=== PATIENT | female | born 1980 | race Caucasian/White ===

== ENCOUNTER → 2016-09-07 | Outpatient (CLI) | payer OTHER ==
[2016-09-07 16:59] LABS: HEMATOCRIT 36.4 % (37-47); MEAN CELL VOLUME 91.7 fL (80-100); MEAN CORPUSCULAR HEMOGLOBIN 29.7 pg (25-34); MEAN CORPUSCULAR HGB CONC 32.4 g/dl (32-36); MEAN PLATELET VOLUME 9.8 fL (7.4-10.4); PLATELET COUNT 323 K/uL (130-400); RED BLOOD COUNT 3.97 M/uL (4.2-5.4); WHITE BLOOD COUNT 6.16 K/uL (4.8-10.8)
[2016-09-07 17:36] LABS: LYME DISEASE AB IGM NEG (NEG)
[2016-09-07 17:39] LABS: LYME DISEASE AB IGG NEG (NEG)
[2016-09-07 19:35] LABS: BLOOD UREA NITROGEN 11 mg/dl (7-18); BUN/CREATININE RATIO 11.9 (10-20); CALCIUM 8.8 mg/dl (8.5-10.1); CARBON DIOXIDE 26 mmol/L (21-32); CHLORIDE 107 mmol/L (98-107); CREATININE 0.94 mg/dl (0.60-1.20); GLUCOSE 82 mg/dl (70-99); POTASSIUM 3.6 mmol/L (3.5-5.1); SODIUM 138 mmol/L (136-145)
[2016-09-07 19:45] LABS: THYROID STIMULATING HORMONE 0.527 uIu/ml (0.300-4.500)
== END | disposition home or self-care (01) ==
LOC: C.LABPBG 14:51
PROVIDERS: ATTEND Family Medicine
DX: I10 Essential (primary) hypertension (principal)

== ENCOUNTER 2022-06-14 08:32 | Observation (INO) ==
--- NOTE | 2022-05-25 14:04 | PAT Medication Instructions ---
Medication Instructions Date of Service May 25, 2022 Home Medications Medication Instructions Recorded montelukast 10 mg tablet 10 mg PO QAM #90 tabs 11/30/21 buspirone 10 mg tablet 20 mg PO TID lamotrigine 200 mg tablet 200 mg PO BID topiramate 100 mg tablet 100 mg PO BID montelukast 10 mg tablet 10 mg PO QAM venlafaxine 150 mg capsule,extended release 24 hr 150 mg PO BID pantoprazole 40 mg tablet,delayed release 40 mg PO QAM DO NOT take the morning of surgery montelukast 10 mg tablet 10 mg PO QAM Take morning of surgery With a small sip of water, OTHERWISE NOTHING TO EAT OR DRINK AFTER MIDNIGHT: buspirone 10 mg tablet 20 mg PO TID lamotrigine 200 mg tablet 200 mg PO BID topiramate 100 mg tablet 100 mg PO BID venlafaxine 150 mg capsule,extended release 24 hr 150 mg PO BID pantoprazole 40 mg tablet,delayed release 40 mg PO QAM Take evening before surgery buspirone 10 mg tablet 20 mg PO TID lamotrigine 200 mg tablet 200 mg PO BID topiramate 100 mg tablet 100 mg PO BID venlafaxine 150 mg capsule,extended release 24 hr 150 mg PO BID Other Notes If you have any questions please call us at [phone] or [phone] or [phone] or [phone]
--- NOTE | 2022-06-07 08:26 | Anesthesiology Consultation ---
Date of Service June 07, 2022 Assessment & Plan (1) Encounter for pre-operative examination: Chart Review Chart Review: Acceptable Risk for Surgery (pending PCP clearance 06/07/22) and Patient seen in Pre Admission Testing -Awaiting PCP clearance 06/07/22 - Check test AM DOS Per PAT appt on 06/07/22, patient denies any recent travel or large group activities. Pt is NOT vaccinated for Covid. Will leave to surgeon's discretion if preop Covid testing needed. Educated on importance of using Covid precautions one week prior to surgery Teaching & Discussion Pre-Anesthesia Teaching/Discussion Notes: Instructed NPO after midnight before surgery,except medications with 15 cc of water. Medication instructions p rovided according to the PAT guidelines. History Surgery Operation Date: 06/14/22 10:35 Proposed Procedures p L5-S1 Decompression and Fusion, Spinal Cord Monitoring - Abisai Estrada, Height/Weight Height: 5 ft 7 in Weight: 74.8 kg Allergies Allergy/AdvReac Type Severity Reaction Status Date / Time sumatriptan Allergy Intermediate Rash Verified 05/25/22 12:10 fluoxetine AdvReac Unknown Irritabilit Verified 05/25/22 12:10 y lurasidone AdvReac Unknown Irritabilit Verified 05/25/22 12:10 y Medications Home Medications Medication Instructions Recorded Confirmed Last Taken buspirone 10 mg tablet 20 mg PO TID #180 tabs 12/09/18 05/25/22 09/29/20 lamotrigine 200 mg tablet 200 mg PO BID 12/09/18 05/25/22 09/29/20 topiramate 100 mg tablet 100 mg PO BID #60 tabs 12/09/18 05/25/22 09/29/20 montelukast 10 mg tablet 10 mg PO QAM #90 tabs 11/30/21 05/25/22 Unknown venlafaxine 150 mg 150 mg PO BID #30 caps 12/21/21 05/25/22 Unknown capsule,extended release 24 hr pantoprazole 40 mg tablet,delayed 40 mg PO QAM 05/25/22 05/25/22 Unknown release Past Medical History Medical History Alcohol abuse, in remission No alcohol x 5 years Anxiety Bipolar affective disorder Current smoker 5 cig daily + vapes daily Depression Gastric ulcer hx 2020. on protonix daily. History of COVID-15 December (first week) 2021 - mild cold/flu like symptoms. Insomnia Lumbar spondylosis Migraines hx Exercise / Class Metabolic Activity II 4-5 Yardwork/Stairs/Walk up hill (one flight of stairs- no chest pain or SOB) Past Family History Family History Mother Obesity Migraine headache Grandfather Obesity Hypertension Cardiac disorder Sister Depression Grandmother Migraine headache Aunt Migraine headache Family/Other Migraine headache Grandfather Myocardial infarction Father No problems noted. Denies family history of Colon cancer Ovarian cancer Prostate cancer Breast cancer Past Surgical History Surgical History H/O elbow surgery for tennis elbow surgery done [facility] History of dilatation and curettage S/P epidural steroid injection Lumbar S/P wisdom tooth extraction Past Anesthesia History No Hx of Anesthesia Complications and No Family Hx of Anesthesia Complications History of PONV No Hx of PONV and No Hx of Motion Sickness Social History Smoking Status: Current every day smoker tobacco type: cigarettes and e-cigarettes Smoking cigarettes per day: 10 Do You Dip or Chew Tobacco: No Hx Alcohol Use: Yes (hx heavy alcohol use - no drinks for 5 years) Alcohol type: beer, wine and hard liquor Hx Substance Use: No Review of Systems Hx of snoring and witnessed apnea - no hx of sleep study Patient denies chest pain, shortness of breath, dyspnea on exertion, reflux, cough, wheezing, palpitations. No hx of seizures, stroke, [place]. No hx of blood clots or blood transfusions Physical Exam Vital Signs VITALS BP 118/86 P 93 TEMP 98.0 SP02 96% RESP 16 Constitutional no acute distress ENMT Mouth: + small oral opening (mild); no TMJ clicking Thyromental Distance: < 3.5 Finger Breadths (3.0) Mallampati Class: II Neck + limited neck extension (mild ) Respiratory normal respiratory effort; no respiratory distress Auscultation: lungs clear to auscultation bilaterally; no wheezes Cardiovascular Rate/Rhythm: regular rate and regular rhythm Heart Sounds: no murmur Vessels: no carotid bruit Musculoskeletal Spine: + pain with cervical ROM Extremities: extremities normal to inspection Psychiatric Orientation: alert Lab Results Anesthesia Preop Results Results Anesthesia Widget: WBC 4.48 K/ul (4.8-10.8) L 06/07/22 Hgb 12.1 g/dl (12.0-16.0) 06/07/22 Hct 36.7 % (37.0-47.0) L 06/07/22 Plt 296 K/uL (130-400) 06/07/22 Na 138 mmol/L (136-145) 06/07/22 K 4.2 mmol/L (3.5-5.1) 06/07/22 Cl 109 mmol/L (98-107) H 06/07/22 CO2 23 mmol/L (21-32) 06/07/22 BUN 20 mg/dl (6-23) 06/07/22 Creat 0.81 mg/dl (0.6-1.2) 06/07/22 Glucose Level 106 mg/dl (70-99(Fasting)) H 06/07/22 PT 9.9 Seconds (9.0-12.0) 06/07/22 PTT 27.5 Seconds (21.0-31.0) 06/07/22 INR 0.9 (0.9-1.1) 06/07/22 Urine Color Yellow 06/07/22 Urine Appearance Clear (Clear) 06/07/22 Urine pH 5.5 (4.5-7.5) 06/07/22 Urine Specific [place] 1.006 (1.000-1.030) 06/07/22 Urine Protein Negative (Negative) 06/07/22 Urine Glucose (UA) Negative (Negative) 06/07/22 Urine Ketones Negative (Negative) 06/07/22 Urine Blood Negative (Negative) 06/07/22 Urine Nitrite Negative (Negative) 06/07/22 Urine Bilirubin Negative (Negative) 06/07/22 Urine Urobilinogen Negative (Negative) 06/07/22 Urine Leukocyte Esterase Negative (Negative) 06/07/22 Blood Type O Positive 06/07/22 Antibody Screen NEGATIVE 06/07/22 Testing Electrocardiogram Date: 06/07/22 Findings: + NSR @ (88bpm) Normal EKG per cardio Chest X-Ray Date: 12/01/21 Findings: + NAD COVID-19 Risk Screen Screening Information COVID-19 Screen Date: 06/07/22 Exposure 21 Days Family/Household +COVID Last 21 Days: No Exposure 10 Days Any COVID Exposure Last 10 Days: No Symptoms Last 10 Days Experienced COVID Sx Last 10 Days: No + COVID 0-90 Days COVID + in Last 0-90 Days: No Risk Plan COVID Risk Plan: No Risk Identified Patient Education COVID Preop Screening Education Complete: Yes
[~2022-06-14 08:32] MED LIST: ACETAMINOPHEN 500 MG TAB PO SCH; CeleBREX 200 MG CAP PO SCH; FAMOTIDINE/PF 20 MG/2 ML VIAL IV ONE; GABAPENTIN 900 MG DOSE PO SCH; LR 15ML/HR IV SCH; ceFAZolin 2000MG 2,000 MG/15 ML SYR IV SCH
[2022-06-14] MEDS ORDERED: MIDAZOLAM HCL 1 MG/ML 2ML VIAL ONE (08:45)
[2022-06-14] MEDS ORDERED: fentaNYL citrate PF 100 MCG/2 ML VIAL ONE (08:45)
[2022-06-14] MEDS ORDERED: LIDOCAINE 2% MPF LOCAL 5 ML VIAL INFIL ONE (08:45)
[2022-06-14] MEDS ORDERED: PROPOFOL IV EMULSION 10 MG/ML 20 ML VIAL IV ONE (08:46)
[2022-06-14] MEDS ORDERED: LARYING-O-JET KIT (LTA) ONE (08:47)
[2022-06-14] MEDS ORDERED: ONDANSETRON INJ 2 MG/ML 2 ML VIAL ONE (08:47)
[2022-06-14] MEDS ORDERED: HYDROmorphone INJ 2 MG/ML SYR/VIAL ONE (08:47)
[2022-06-14] MEDS ORDERED: DEXAMETHASONE SOD INJ 4 MG/ML VIAL ONE (08:47)
[2022-06-14] MEDS ORDERED: METOCLOPRAMIDE HCL INJ 5 MG/ML 2 ML VIAL ONE (08:48)
[2022-06-14] MEDS ORDERED: HYDROmorphone INJ 2 MG/ML SYR/VIAL IV PRN (09:27)
[2022-06-14] MEDS ORDERED: ONDANSETRON INJ 2 MG/ML 2 ML VIAL IV PRN ×2 (09:27→13:27)
[2022-06-14] MEDS ORDERED: ePHEDrine sulfate 50 MG/ML AMP IV PRN (09:27)
[2022-06-14] MEDS ORDERED: ATROPINE SULFATE 0.1 MG/ML 10ML SYR IV PRN (09:27)
--- NOTE | 2022-06-14 09:58 | History & Physical Bridge Note ---
Date of Service June 14, 2022 History & Physical Bridge Note I have examined the patient, reviewed the History & Physical and in the interval since the performance of the History & Physical I have noted the following changes of clinical significance: no changes noted
--- NOTE | 2022-06-14 09:59 | History & Physical Report ---
Date of Service June 14, 2022 Assessment & Plan (1) Neurogenic claudication due to lumbar spinal stenosis: Plan: L5-S1 decompression and fusion History of Present Illness Chief Complaint: Back and leg Primary Care Provider: DENY Solis This a 41-year-old female presents with current persistent back and leg pain after failing course of nonoperative care she is here for surgical invention. Allergies Allergy/AdvReac Type Severity Reaction Status Date / Time sumatriptan Allergy Intermediate Rash Verified 05/25/22 12:10 fluoxetine AdvReac Unknown Irritabilit Verified 05/25/22 12:10 y lurasidone AdvReac Unknown Irritabilit Verified 05/25/22 12:10 y Home Medications Medication Instructions Recorded Confirmed Type buspirone 10 mg tablet 20 mg PO TID #180 tabs 12/09/18 06/14/22 History lamotrigine 200 mg tablet 200 mg PO BID 12/09/18 06/14/22 History topiramate 100 mg tablet (Topamax) 100 mg PO BID #60 tabs 12/09/18 06/14/22 History montelukast 10 mg tablet 10 mg PO QAM #90 tabs 11/30/21 06/14/22 Rx venlafaxine 150 mg 150 mg PO BID #30 caps 12/21/21 06/14/22 History capsule,extended release 24 hr pantoprazole 40 mg tablet,delayed 40 mg PO QAM 05/25/22 06/14/22 History release acetaminophen 500 mg tablet 1,000 mg PO Q8 PRN Pain 06/14/22 06/14/22 History Past Med/Surg History Medical History Alcohol abuse, in remission No alcohol x 5 years Anxiety Bipolar affective disorder Current smoker 5 cig daily + vapes daily Depression Gastric ulcer hx 2020. on protonix daily. History of COVID-15 December (first week) 2021 - mild cold/flu like symptoms. Insomnia Lumbar spondylosis Migraines hx Surgical History H/O elbow surgery for tennis elbow surgery done [facility] History of dilatation and curettage S/P epidural steroid injection Lumbar S/P wisdom tooth extraction Family History Mother Obesity Migraine headache Grandfather Obesity Hypertension Cardiac disorder Sister Depression Grandmother Migraine headache Aunt Migraine headache Family/Other Migraine headache Grandfather Myocardial infarction Father No problems noted. Denies family history of Colon cancer Ovarian cancer Prostate cancer Breast cancer Social History Smoking Status: Current every day smoker Tobacco Type: Cigarettes Age Started Using Tobacco: 13; packs per day: 0.5; Cigarettes Per Day: 10; Second Hand Exposure: Yes; Do You Dip or Chew Tobacco: No; Tobacco Cessation Education Requested by Patient: No Hx Alcohol Use: Yes (hx heavy alcohol use - no drinks for 5 years) Alcohol type: beer, wine and hard liquor Hx Substance Use: No Preferred Language: Kyr[place]z Communication Ability: Effective Visual Impairment: No Limitations Hearing Ability: Normal Internal Combustion Engine Subassembler Required: No Beliefs That Will Affect Care: None marital status: Current Living Situation: Spouse current occupational status: employed current occupation: Director Of Rehabilitation Other Information That Helps Us Care for You: No Feels Safe at Home: Yes Safety Concerns: Feels Safe At This Time Childhood Exposure to Second-Hand Smoke: Yes caffeine: Yes during the past year weight has: remained stable Dental Care, Regularly: Yes Physical Activity Frequency: 1-2 Times per Week Seatbelt Use: always Sunscreen Use: Yes Assistive Devices: Glasses Physical Exam Physical Exam: Patient is alert and oriented Heart regular rhythm Lungs clear Results & Data Results & Data ([facility]) Vital Signs (Past 12 Hours) Vital Signs Temp Pulse Resp BP Pulse Ox O2 Del Method 06/14/22 09:20 36.7 C 71 18 123/82 100 Room Air
[2022-06-14] MEDS ORDERED: ceFAZolin 330 MG/ML 1 GM VIAL ONE (10:06)
[2022-06-14] MEDS ORDERED: BUPIVACAINE/EPINEPHRINE 0.25% 1:200,000 30 ML VIAL ONE (10:06)
[2022-06-14] MEDS ORDERED: PHENYLEPHRINE 100MCG/ML 5ML SYR ONE (11:08)
[2022-06-14] MEDS ORDERED: NEOSTIGMINE METHYLSULFATE 1 MG/ML 10ML VIAL ONE (11:30)
[2022-06-14] MEDS ORDERED: GLYCOPYRROLATE 0.2 MG/ML VIAL ONE (11:30)
[2022-06-14] MEDS ORDERED: ROCURONIUM BROMIDE 10 MG/ML 5 ML VIAL IV ONE ×3 (11:30)
--- NOTE | 2022-06-14 12:03 | Operative Report ---
Post Operative Report Pre & Post Diagnosis Operation Date: 06/14/22 10:05 Pre-Op Diagnosis: neurogenic claudication due to lumbar spinal stenosis Post-Op Diagnosis: neurogenic claudication due to lumbar spinal stenosis I identified the patient and participated in the time-out.: Yes Procedure Operation Date: 06/14/22 10:05 Actual Procedures #1 lumbar decompression bilateral medial facetectomies and foraminotomies L5-S1. #2 posterior spinal fusion L5-S1. #3 placement posterior instrumentation L5- S1. #4 interbody fusion L5-S1. #5 placement of Spira 12 x 26 mm at L5-S1. #6 placement locally harvested morselized autograft in the posterior gutters. #7 placement of I factor combined with V toss in the interbody space and posterior gutters. Surgeon Abisai Estrada, Spouter None Estimated Blood Loss 100 Findings Consistent with Post-Op Diagnosis Specimens None Indications This is a 41-year-old female who presents above-mentioned diagnosis after failed course of nonoperative care she is here for surgical invention. Description of Procedure Patient was met with identified informed consent obtained. Patient was then taken to the operative suite underwent a patient placed in a prone position on the [facility] top Karel frame. All bony prominences well-padded eyes inspected to ensure no external pressure placed upon the. This point the lumbar spine was prepped and draped in normal sterile fashion. Sharp dissection with the assistance of Bovie cautery was performed down to and exposing the lamina and transverse processes of L5 and the sacral ala bilaterally. From a caudal cephalad fashion complete laminectomy L5 was performed including bilateral media l facetectomies and foraminotomies addressing severe spinal stenosis. Pedicle screws then placed in L5 and S1 levels bilaterally with assistance of fluoroscopy and appropriate sized asmita placed. By way of entrance foraminal approach on the right a complete discectomy at L5-S1 was performed endplates curetted to subcortical bleeding bone and a 12 x 26 mm Spira cage with I factor tapped in position. The rods were then locked in final position bilaterally. The transverse processes of L5 and sacral ala burred to subcortical bleeding bone. I factor combined with the test and locally harvested morselized autograft was placed in the posterior gutters. 15 round JAMILA drain inserted. The incision was then closed with 1 Vicryl in the fascia 2-0 Vicryl subcutaneously and 4 Monocryl for final skin closure. Steri-Strip sterile dressings placed. Patient waken taken to PACU in stable condition. Please note spinal cord monitoring was utilized at the procedure no changes noted. I attest to the content of the Intraoperative Record and any orders documented therein. Any exceptions are noted below.
[2022-06-14] MEDS ORDERED: FLOSEAL HEMOSTATIC MATRIX 10ML TOP ONE (12:05)
[2022-06-14] MEDS: fentaNYL citrate PF 100 MCG/2 ML VIAL IV PRN ×2 (12:35→12:40)
--- NOTE | 2022-06-14 13:02 | Fluoroscopy Report ---
FL lumbar spine 2-3V CLINICAL HISTORY: L5-S1 DECOMPRESSION AND FUSION COMPARISON STUDY: None. FLUOROSCOPY TIME: 30 seconds. EXPOSURE DOSE: 24.47 mGy FLUOROSCOPIC IMAGES: 2 FINDINGS: Fluoroscopy was provided during L5-S1 discectomy, posterior decompression and bilateral ped icle screw fusion. The surgeon was made aware of the linear radiodensity within the operative bed. IMPRESSION: Fluoroscopy provided during L5-S1 discectomy, posterior decompression and bilateral pedi tanja screw fusion. ACT 112: Negative or not required by law. Electronically signed by: Seun Mendez M.D. 06/14/2022 1:01 PM
--- NOTE | 2022-06-14 13:12 | Anesthesiology Progress Note ---
Date of Service June 14, 2022 Anesthesia Post Procedure Vital Signs Vital Signs: Temp Pulse Pulse Resp BP Pulse Ox O2 Del Method 06/14/22 13:05 85 12 121/85 95 Room Air 06/14/22 12:55 36.4 C L 85 12 117/83 94 Room Air 06/14/22 12:45 82 14 129/86 99 Oxymask 06/14/22 12:35 87 15 143/98 H 100 Oxymask 06/14/22 12:25 84 15 148/104 H 100 Oxymask 06/14/22 12:15 36.0 C L 96 H 10 L 147/100 H 100 Oxymask 06/14/22 09:20 36.7 C 71 18 123/82 100 Room Air O2 Flow Rate 06/14/22 13:05 06/14/22 12:55 06/14/22 12:45 4 06/14/22 12:35 4 06/14/22 12:25 6 06/14/22 12:15 8 06/14/22 09:20 Pain Intensity Lumbar: Pain Intensity: 4 Transfer of Care Handoff Completed per policy Notes Mental Status: alert / awake / arousable Patient Amnestic to Procedure: Yes Nausea / Vomiting: adequately controlled Pain: adequately controlled Airway Patency, RR, SpO2: stable & adequate BP & HR: stable & adequate Hydration State: stable & adequate Anesthetic Complications: no major complications apparent
[2022-06-14] MEDS ORDERED: DO NOT ADMINISTER PNEUMOCOCCAL VACCINE PRN (13:27)
[2022-06-14] MEDS ORDERED: FAMOTIDINE 20 MG TAB PO PRN (13:27)
[2022-06-14] MEDS ORDERED: METOCLOPRAMIDE HCL INJ 5 MG/ML 2 ML VIAL IV PRN (13:27)
[2022-06-14] MEDS ORDERED: hydrOXYzine HCl 25 MG TAB PO PRN (13:27)
[2022-06-14] MEDS ORDERED: LACTATED RINGER'S 1,000 ML IV SCH (13:27)
[2022-06-14] MEDS ORDERED: bisacodyL 10 MG SUPP PR PRN (13:27)
[2022-06-14] MEDS ORDERED: DO NOT ADMINISTER FLU VACCINE PRN (13:27)
[2022-06-14] MEDS ORDERED: ACETAMINOPHEN 1,000 MG/100 ML VIAL IV PRN (13:27)
[2022-06-14] MEDS ORDERED: NALOXONE HCL 0.4 MG/1 ML VIAL/CARP IV PRN (13:27)
[2022-06-14] MEDS ORDERED: MAGNESIUM HYDROXIDE SUSP 30 ML UDC PO PRN (13:27)
[2022-06-14] MEDS ORDERED: SOD PHOSPHATE/SOD BIPHOSPHATE ENEMA 132 ML BTL PR PRN (13:27)
[2022-06-14] MEDS ORDERED: ALUMINUM/MAGNESIUM SUSP 30 ML UDC PO PRN (13:27)
[2022-06-14] MEDS ORDERED: ACETAMINOPHEN 500 MG TAB PO PRN (13:27)
[2022-06-14] MEDS ORDERED: diphenhydrAMINE Capsule 25 MG CAP PO PRN (13:27)
[2022-06-14] MEDS ORDERED: ONDANSETRON 4 MG OD TAB PO PRN (13:27)
[2022-06-14] MEDS ORDERED: LORazepam 2 MG/1 ML VIAL IV PRN (13:27)
[2022-06-14] MEDS ORDERED: LORazepam 0.5 MG TAB PO PRN (13:27)
[2022-06-14] MEDS ORDERED: PROMETHAZINE HCL 12.5 MG in SODIUM CHLORIDE 0.9% 50 ML IV PRN (13:27)
[2022-06-14] MEDS: oxyCODONE HCL IR 5 MG TAB (IMMEDIATE RELEASE) PO PRN ×2 (13:56→17:51)
[2022-06-14] MEDS: busPIRone 5 MG TAB PO SCH ×2 (15:15→20:18)
[2022-06-14] MEDS: ceFAZolin 2000MG 2,000 MG/15 ML SYR IV SCH (16:59)
[2022-06-14] MEDS: traMADol HCL 50 MG TABLET PO PRN (20:16)
[2022-06-14] MEDS: DOCUSATE SODIUM/SENNA 50/8.6MG TAB PO SCH (20:18)
[2022-06-14] MEDS: TOPIRAMATE 100 MG TAB PO SCH (20:20)
[2022-06-14] MEDS: VENLAFAXINE HCL XR 150 MG CAPXR PO SCH (20:20)
[2022-06-14] MEDS: lamoTRIgine 100 MG TAB PO SCH (20:21)
[2022-06-15] MEDS: ceFAZolin 2000MG 2,000 MG/15 ML SYR IV SCH (01:39)
[2022-06-15] MEDS: oxyCODONE HCL IR 5 MG TAB (IMMEDIATE RELEASE) PO PRN ×5 (01:49→21:57)
[2022-06-15] MEDS: HYDROmorphone INJ 0.5 MG/0.5 ML SYR IV PRN ×4 (04:08→14:56)
[2022-06-15] MEDS: POLYETHYLENE (MIRALAX) 17 GM PACK PO SCH ×3 (05:20→17:51)
[2022-06-15 06:37] LABS: Basophils # (auto) 0.01 K/uL (0-0.2); Basophils % (auto) 0.1 %; Eosinophils # (auto) 0.07 K/uL (0-0.50); Eosinophils % (auto) 0.7 %; Hemoglobin 10.4 g/dl (12.0-16.0); Immature Granulocytes # (auto) 0.03 K/uL (0.01-0.20); Immature Granulocytes % (auto) 0.3 %; Lymphocytes # (auto) 2.63 K/uL (1.2-3.4); Lymphocytes % (auto) 27.7 %; Mean Corpuscular Hemoglobin 30.1 pg (25.0-34.0); Mean Corpuscular Hgb Conc 33.5 g/dL (32.0-36.0); Mean Corpuscular Volume 89.9 fL (80.0-100.0); Mean Platelet Volume 9.9 fL (9.4-12.4); Monocytes # (auto) 0.71 K/uL (0.11-0.59); Monocytes % (auto) 7.5 %; Neutrophils # (auto) 6.03 K/uL (1.40-6.50); Neutrophils % (auto) 63.7 %; Platelet Count 279 K/uL (130-400); RDW Coefficient of Variation 13.4 % (11.5-14.5); RDW Standard Deviation 44.5 fL (36.4-46.3); Red Blood Count 3.45 M/uL (4.20-5.40); White Blood Count 9.48 K/ul (4.8-10.8)
[2022-06-15 06:46] LABS: BUN Creatinine Ratio 18.8 (10-20); Calcium 8.3 mg/dl (8.5-10.1); Creatinine Clr Calc Pharmacy 95.7 ml/min; Est GFR (African American) 104.7 ml/min; Est GFR (Non-African American) 90.3 ml/min; Potassium 3.6 mmol/L (3.5-5.1)
[2022-06-15] MEDS: lamoTRIgine 100 MG TAB PO SCH ×2 (08:47→20:01)
[2022-06-15] MEDS: VENLAFAXINE HCL XR 150 MG CAPXR PO SCH ×2 (08:47→20:00)
[2022-06-15] MEDS: dexAMETHasone 6 MG in SYRINGE 0 ML IV SCH (08:47)
[2022-06-15] MEDS: busPIRone 5 MG TAB PO SCH ×3 (08:48→19:59)
[2022-06-15] MEDS: PANTOprazole 40 MG TAB PO SCH (08:48)
[2022-06-15] MEDS: MONTELUKAST SODIUM 10 MG TABLET PO SCH (08:48)
[2022-06-15] MEDS: TOPIRAMATE 100 MG TAB PO SCH ×2 (08:48→20:01)
--- NOTE | 2022-06-15 09:12 | Orthopedic Progress Note ---
Date of Service June 15, 2022 Assessment & Plan (1) Neurogenic claudication due to lumbar spinal stenosis: Plan: At this time initiate physical therapy monitor JAMILA output hopefully discharge home this weekend. Admission and Anticipated Discharge Date Admission Date: June 14, 2022 Subjective Back pain controlled leg symptoms markedly improved Physical Exam Physical Exam: Patient is in bed. She is comfortable. Is good strength testing. Results & Data ([facility]) Vital Signs (Past 12 Hours) Vital Signs Temp Pulse Pulse Resp BP Pulse Ox O2 Del Method 06/15/22 08:16 36.8 C 82 18 108/70 98 Room Air 06/15/22 03:09 36.7 C 79 18 116/70 99 Room Air
[2022-06-15] MEDS: traMADol HCL 50 MG TABLET PO PRN (19:57)
[2022-06-15] MEDS: DOCUSATE SODIUM/SENNA 50/8.6MG TAB PO SCH (20:00)
[2022-06-16] MEDS: HYDROmorphone INJ 0.5 MG/0.5 ML SYR IV PRN (00:27)
[2022-06-16] MEDS: POLYETHYLENE (MIRALAX) 17 GM PACK PO SCH ×3 (00:28→11:47)
[2022-06-16] MEDS: oxyCODONE HCL IR 5 MG TAB (IMMEDIATE RELEASE) PO PRN ×2 (06:14→11:45)
--- NOTE | 2022-06-16 08:13 | Discharge Summary ---
Date of Service June 16, 2022 Admission HPI Per Admitting Provider This a 41-year-old female presents with current persistent back and leg pain after failing course of nonoperative care she is here for surgical invention. Principal Diagnosis Lumbar spinal stenosis with radiculopathy Discharge Data Allergies Allergy/AdvReac Type Severity Reaction Status Date / Time sumatriptan Allergy Intermediate Rash Verified 05/25/22 12:10 fluoxetine AdvReac Unknown Irritabilit Verified 05/25/22 12:10 y lurasidone AdvReac Unknown Irritabilit Verified 05/25/22 12:10 y Procedures Performed Operation Date: 06/14/22 10:05 Actual Procedures p L5-S1 Decompression and Fusion, Spinal Cord Monitoring(Not Applicable) - Abisai Estrada DO Ordered Studies 06/14/22 07:00 [place] lumbar spine 2-3V Routine Hospital Course (1) Neurogenic claudication due to lumbar spinal stenosis: Patient with limited motion fusion L as well as leg orthopedic for postoperative. Postop day 1 she is up and ambulating progressed to postop day #2. Pain well controlled. Excellent strength testing. JAMILA drain decreasing appropriately. Subsequent discharge home. Discharge orders instructions from the chart for further review. Total Time Total Time Spent Total Time Spent (In Minutes): 20 minutes Discharge Plan Discharge Items Patient Disposition: Home - Self-Care Reason For Visit: Radiculopathy, Lumbar Region Discharge Diagnosis: Lumbar spinal stenosis with radiculopathy Activity: As commented below Non-emergency contact: Primary Care Provider Call non-emergency contact if: you have any medication questions Follow-up/Referrals: Suzette Carreon CRNP [Primary Care Provider] - Diet: Regular Addtl Attending Provider Instructions: ACTIVITY RECOMMENDATIONS: SELF CARE INSTRUCTIONS AFTER THORACIC/LUMBAR FUSIONS 1. You may walk to your tolerance. It is good exercise for your legs and back. Expect some back and intermittent leg aches and pains. 2. You may perform "counter-top" level activities (make a sandwich, hemalatha with a project, etc.). 3. No bending or lifting of more than 10 pounds or back twisting of any nature (roll like a log when turning in bed). 4. You may ride in a car for 20-30 minutes at a time. No driving until after your first visit with your doctor. 5. Frequent changes of position and restricting sitting to 30 minutes at a time will help limit the amount of back spasms and stiffness you may experience. 6. You may discontinue the use of ambulatory aids (cane, crutches, etc.) once your strength and confidence allow. 7. You may industrial electrician journeyman the shower and let water strike your incision when you arrive home at least once daily. Do not take a tub bath, sit in a hot tub or go into a swimming pool until after your first recheck in the office. SPECIAL CARE INSTRUCTIONS: VERY IMPORTANT TO READ AND REVIEW A. Your surgical incision has been closed with a cosmetic suture under the skin that will dissolve in about 6 weeks. In 14 days, you can use a pair of clean scissors and cut the suture that is left outside of the skin at the ends of your incision. 1. The small skin tapes can be removed 7 days after surgery if they have not fallen off by that point. 2. You may keep the wound open to air as much as possible to promote healing after post-op day number 5 unless told otherwise by your doctor. 3. If you think the wound looks like it is becoming infected (redness or worsening drainage) and/or you are experiencing fever, chill or worsening back pain and muscle spasms, contact the office so that we may evaluate you as soon as possible. B. Complications are uncommon, but please contact us if you have any signs or symptoms of: 1. wound infection (fever higher than 102.5 degrees F, redness, separation of wound, drainage, or increasing pain from the incision) 2. blood clots in legs (pain, swelling, redness and warmth in legs) 3. urinary tract infection (fever higher than 102.5 degrees F, burning upon urination or increased frequency of urination) 4. nerve problems (inability to walk on your toes or heels, numbness, loss of bowel or bladder control) 5. any other symptoms that concern you C. Please call the office at if you have any concerns or questions about your operation or recovery. D. No smoking! Smoking drastically decreases the chance of a solid fusion. E. Do not take any anti-inflammatory medications (Indocin, Advil, Motrin, Aspirin, Naprosyn, etc.) as these may inhibit the chance of a solid fusion. Tylenol is okay to take for pain. MANAGING PAIN AFTER SPINAL SURGERY 1. Narcotic medication is intended for short-term use and will be provided for surgical pain. Surgical pain usually lasts for a period of 4-6 weeks. Narcotic medication includes Percocet, Vicodin, Darvocet, Tylenol #3 or Lortab. 2. Longer-term pain is more appropriately treated with non-narcotic medication such as Tylenol ES. 3. Muscle spasm is not appropriately treated with narcotics. Muscle relaxers such as Soma, Flexeril or Skelaxin can be used along with Tylenol ES. 4. Remember that we all live with some "aches and pains". This is not unusual or uncommon after an injury or as we get older. a. Back pain is expected and may include muscle spasms for 4 to 6 weeks after surgery. The pain should gradually improve. If the pain worsens for no apparent reason, please contact the office. b. Intermittent leg pain may also be experienced and should not be concerned about unless it worsens for no apparent reason. If so, please contact the office. 5. We will provide appropriate medication within the normal guidelines of their prescribed use. We will also be very cautious and aware of potential abuse and extended duration of patients' medication needs. a. Pain medications are for your comfort and to assist with sleep and rest so that the tissue can heal. They are not provided in order to return to normal activity and should not be used through the day. To do so or worsening pain at night can result from ongoing tissue damage and development of tolerance to the prescribed medicine. 6. Please allow 2-3 days to process refills. Prescriptions will not be mailed but must be picked up at the office. FOLLOW UP VISIT: Keep your scheduled follow-up appointment. Any questions, please call the office at . Pending Studies at Discharge: No Stand-Alone Forms: [employer] Smoking Cessation Medications and DC Order Prescriptions: New tramadol 50 mg tablet 50 mg PO Q6H PRN (Reason: pain, moderate) Qty: 30 0RF oxycodone 5 mg tablet 5 mg PO Q6H PRN (Reason: pain, severe) Qty: 30 0RF Continued montelukast 10 mg tablet 10 mg PO QAM Qty: 90 1RF buspirone 10 mg tablet 20 mg PO TID Qty: 180 lamotrigine 200 mg tablet 200 mg PO BID Patient Comments: PER PSYCH topiramate [Topamax] 100 mg tablet 100 mg PO BID Qty: 60 venlafaxine 150 mg capsule,extended release 24hr 150 mg PO BID Qty: 30 Patient Comments: TOTAL OF 225 MG/DAY pantoprazole 40 mg tablet,delayed release (DR/EC) 40 mg PO QAM acetaminophen 500 mg Tablet 1,000 mg PO Q8 PRN (Reason: Pain) Discharge Orders: Discharge Order (Routine); Ordered 06/16/22 Ordered By: Abisai Estrada Admission Data Admit Date/Time: 06/14/22 12:06 Attending Provider: Abisai Estrada Admit Provider: Abisai Estrada Primary Care Provider: Suzette Carreon
[2022-06-16] MEDS: traMADol HCL 50 MG TABLET PO PRN (08:34)
[2022-06-16] MEDS: lamoTRIgine 100 MG TAB PO SCH (08:35)
[2022-06-16] MEDS: dexAMETHasone 6 MG in SYRINGE 0 ML IV SCH (08:35)
[2022-06-16] MEDS: PANTOprazole 40 MG TAB PO SCH (08:36)
[2022-06-16] MEDS: MONTELUKAST SODIUM 10 MG TABLET PO SCH (08:36)
[2022-06-16] MEDS: VENLAFAXINE HCL XR 150 MG CAPXR PO SCH (08:36)
[2022-06-16] MEDS: busPIRone 5 MG TAB PO SCH ×2 (08:36→14:21)
[2022-06-16] MEDS: TOPIRAMATE 100 MG TAB PO SCH (08:36)
== END 2022-06-16 15:50 | disposition home or self-care (01) | DRG 455 ==
LOC: ASU 08:32 → 3E 12:06 → INTOOBSV 12:06